=== PATIENT | female | born 1975 | race American Indian/Alaskan Native ===

== ENCOUNTER 2018-11-26 08:56 | Emergency (ER) | payer OTHER ==
[2018-11-26 09:35] LABS: Basophils % (Auto) 0.1 % (0.0-1.8); Hematocrit 25.1 % (30.3-42.9); Hemoglobin 7.7 gm/dl (10.1-14.3); Lymphocytes # (Auto) 1.6 K/mm3 (1.2-5.4); Lymphocytes % (Auto) 31.4 % (13.4-35.0); Mean Corpuscular HGB Conc 31 % (30-34); Monocytes # (Auto) 0.6 K/mm3 (0.0-0.8); Platelet Count 597 K/mm3 (140-440); Red Blood Count 4.18 M/mm3 (3.65-5.03); Red Cell Distribution Width 19.5 % (13.2-15.2)
[2018-11-26 09:36] LABS: Mean Corpuscular Volume 60 fl (79-97)
[2018-11-26 10:14] LABS: % Iron Saturation 3.33 %
[2018-11-26 10:16] LABS: BUN/Creatinine Ratio 12; Blood Urea Nitrogen 12 mg/dL (7-17); Calcium 8.8 mg/dL (8.4-10.2); Hemolysis Index 2
[2018-11-26] MEDS ORDERED: FEOSOL PO ONE (11:00)
[2018-11-26 11:22] LABS: Bilirubin,Urine NEG (Negative); Blood,Urine NEG (Negative); Color,Urine Straw (Yellow); Mucus,Urine FEW /HPF; Protein,Urine <15 mg/dL mg/dL (Negative); Urobilinogen,Urine < 2.0 mg/dL (<2.0); WBC,Urine < 1.0 /HPF (0.0-6.0)
[2018-11-26 11:30] LABS: Amphetamine Screen,Urine PRESUMPTIVE NEGATIVE; Benzodiazepines Screen,Urine PRESUMPTIVE NEGATIVE; Cannabinoid Screen,Urine PRESUMPTIVE NEGATIVE; Cocaine Screen,Urine PRESUMPTIVE NEGATIVE; Methadone Screen,Urine PRESUMPTIVE NEGATIVE; Opiate Screen,Urine PRESUMPTIVE NEGATIVE
--- NOTE | 2018-11-26 11:40 | Emergency Department Report ---
ED Psych HPI - General Chief Complaint: Psych Stated Complaint: PSYCH PROBLEMS Time Seen by Provider: 11/26/18 09:44 Source: patient Mode of arrival: Ambulatory Limitations: No Limitations - History of Present Illness Initial Comments: 43-year-old female with a past medical history of PTSD and bipolar disorder presents to the hospital with complains of depression and labile mood. Patient states she is easily triggered and when she gets angry at her emotions are difficult to control and make her want to hurt people. Patient denies auditory or visual hallucinations or suicidal ideation. His been noncompliant with his Seroquel for 2 months. She also has a history of alcohol abuse but has abstained since 2017. Patient recently restarted her left over acamprosate which she has taken in the past to help with alcohol dependence. Patient states that the depression and stress is making her want to start drinking again and she restarted the medication to try to curb her alcohol cravings. Patient states she has not been under any psychiatric care since leaving [place] in the summer of 2017 due to the lack of insurance in [place]. - Related Data Allergies Allergy/AdvReac Type Severity Reaction Status Date / Time No Known Allergies Allergy Unverified 11/26/18 08:57 ED Review of Systems ROS: Stated complaint: PSYCH PROBLEMS Other details as noted in HPI Comment: All other systems reviewed and negative ED Past Medical Hx - Past Medical History Hx Psychiatric Treatment: Yes (BIPOLAR) - Surgical History Additional Surgical History: BREAST REDUCTION . - Social History Smoking Status: Never Smoker Substance Use Type: None ED Physical Exam - General Limitations: No Limitations - Other Other exam information: General: No limitations, patient is alert in no acute distress Head exam: Atraumatic, normocephalic Eyes exam: Normal appearance, pupils equal reactive to light, extraocular movements intact ENT: Moist mucous membrane Neck exam: Normal inspection, full range of motion, no meningismus nontender Respiratory exam: Clear to auscultation bilateral, no wheezes, rales, crackles Cardiovascular: Normal rate and rhythm, normal heart sounds Abdomen: Soft, nondistended, and nontender, with normal bowel sounds, no rebound, or guarding Extremity: Full range of motion normal inspection no deformity Back: Normal Inspection, full range of motion, no tenderness Neurologic: Alert, oriented x3, cranial nerves intact, no motor or sensory deficit Psychiatric: normal affect, normal mood Skin: Warm, dry, intact ED Course Vital Signs 11/26/18 11/26/18 09:05 11:00 Temperature 98.6 F Pulse Rate 87 Respiratory 18 18 Rate Blood Pressure 111/64 O2 Sat by Pulse 98 98 Oximetry ED Medical Decision Making - Lab Data Result diagrams: 11/26/18 09:17 11/26/18 09:17 Lab Results 11/26/18 11/26/18 11/26/18 Range/Units 09:17 09:17 09:17 WBC (4.5-11.0) K/mm3 RBC (3.65-5.03) M/mm3 Hgb (10.1-14.3) gm/dl Hct (30.3-42.9) % MCV (79-97) fl MCH (28-32) pg MCHC (30-34) % RDW (13.2-15.2) % Plt Count (140-440) K/mm3 Lymph % (Auto) (13.4-35.0) % [place] % (Auto) (0.0-7.3) % Eos % (Auto) (0.0-4.3) % Baso % (Auto) (0.0-1.8) % Lymph # (1.2-5.4) K/mm3 [place] # (0.0-0.8) K/mm3 Eos # (0.0-0.4) K/mm3 Baso # (0.0-0.1) K/mm3 Seg Neutrophils % (40.0-70.0) % Seg Neutrophils # (1.8-7.7) K/mm3 Sodium 140 (137-145) mmol/L Potassium 4.0 (3.6-5.0) mmol/L Chloride 104.9 (98-107) mmol/L Carbon Dioxide 26 (22-30) mmol/L Anion Gap 13 mmol/L BUN 12 (7-17) mg/dL Creatinine 1.0 (0.7-1.2) mg/dL Estimated GFR > 60 ml/min BUN/Creatinine Ratio 12 % Glucose 83 (65-100) mg/dL Calcium 8.8 (8.4-10.2) mg/dL Iron (37-170) ug/dL TIBC (250-450) mcg/dL % Saturation % Transferrin (192-382) mg/dl HCG, Qual (Negative) Urine Color (Yellow) Urine Turbidity (Clear) Urine pH (5.0-7.0) Ur Specific [place] (1.003-1.030) Urine Protein (Negative) mg/dL Urine Glucose (UA) (Negative) mg/dL Urine Ketones (Negative) mg/dL Urine Blood (Negative) Urine Nitrite (Negative) Urine Bilirubin (Negative) Urine Urobilinogen (<2.0) mg/dL Ur Leukocyte Esterase (Negative) Urine WBC (Auto) (0.0-6.0) /HPF Urine RBC (Auto) (0.0-6.0) /HPF Urine Mucus /HPF Salicylates < 0.3 L (2.8-20.0) mg/dL Urine Opiates Screen Urine Methadone Screen Acetaminophen 5.3 L (10.0-30.0) ug/mL Ur Barbiturates Screen Ur Phencyclidine Scrn Ur Amphetamines Screen U Benzodiazepines Scrn Urine Cocaine Screen U Marijuana (THC) Screen Drugs of Abuse Note Plasma/Serum Alcohol (0-0.07) % 11/26/18 11/26/18 11/26/18 Range/Units 09:17 09:17 09:17 WBC 5.1 (4.5-11.0) K/mm3 RBC 4.18 (3.65-5.03) M/mm3 Hgb 7.7 L (10.1-14.3) gm/dl Hct 25.1 L (30.3-42.9) % MCV 60 L (79-97) fl MCH 18 L (28-32) pg MCHC 31 (30-34) % RDW 19.5 H (13.2-15.2) % Plt Count 597 H (140-440) K/mm3 Lymph % (Auto) 31.4 (13.4-35.0) % [place] % (Auto) 12.0 H (0.0-7.3) % Eos % (Auto) 0.0 (0.0-4.3) % Baso % (Auto) 0.1 (0.0-1.8) % Lymph # 1.6 (1.2-5.4) K/mm3 [place] # 0.6 (0.0-0.8) K/mm3 Eos # 0.0 (0.0-0.4) K/mm3 Baso # 0.0 (0.0-0.1) K/mm3 Seg Neutrophils % 56.5 (40.0-70.0) % Seg Neutrophils # 2.9 (1.8-7.7) K/mm3 Sodium (137-145) mmol/L Potassium (3.6-5.0) mmol/L Chloride (98-107) mmol/L Carbon Dioxide (22-30) mmol/L Anion Gap mmol/L BUN (7-17) mg/dL Creatinine (0.7-1.2) mg/dL Estimated GFR ml/min BUN/Creatinine Ratio % Glucose (65-100) mg/dL Calcium (8.4-10.2) mg/dL Iron 14 L (37-170) ug/dL TIBC 421 (250-450) mcg/dL % Saturation 3.33 % Transferrin 362 (192-382) mg/dl HCG, Qual (Negative) Urine Color (Yellow) Urine Turbidity (Clear) Urine pH (5.0-7.0) Ur Specific [place] (1.003-1.030) Urine Protein (Negative) mg/dL Urine Glucose (UA) (Negative) mg/dL Urine Ketones (Negative) mg/dL Urine Blood (Negative) Urine Nitrite (Negative) Urine Bilirubin (Negative) Urine Urobilinogen (<2.0) mg/dL Ur Leukocyte Esterase (Negative) Urine WBC (Auto) (0.0-6.0) /HPF Urine RBC (Auto) (0.0-6.0) /HPF Urine Mucus /HPF Salicylates (2.8-20.0) mg/dL Urine Opiates Screen Urine Methadone Screen Acetaminophen (10.0-30.0) ug/mL Ur Barbiturates Screen Ur Phencyclidine Scrn Ur Amphetamines Screen U Benzodiazepines Scrn Urine Cocaine Screen U Marijuana (THC) Screen Drugs of Abuse Note Plasma/Serum Alcohol < 0.01 (0-0.07) % 11/26/18 11/26/18 11/26/18 Range/Units 09:17 Unknown Unknown WBC (4.5-11.0) K/mm3 RBC (3.65-5.03) M/mm3 Hgb (10.1-14.3) gm/dl Hct (30.3-42.9) % MCV (79-97) fl MCH (28-32) pg MCHC (30-34) % RDW (13.2-15.2) % Plt Count (140-440) K/mm3 Lymph % (Auto) (13.4-35.0) % [place] % (Auto) (0.0-7.3) % Eos % (Auto) (0.0-4.3) % Baso % (Auto) (0.0-1.8) % Lymph # (1.2-5.4) K/mm3 [place] # (0.0-0.8) K/mm3 Eos # (0.0-0.4) K/mm3 Baso # (0.0-0.1) K/mm3 Seg Neutrophils % (40.0-70.0) % Seg Neutrophils # (1.8-7.7) K/mm3 Sodium (137-145) mmol/L Potassium (3.6-5.0) mmol/L Chloride (98-107) mmol/L Carbon Dioxide (22-30) mmol/L Anion Gap mmol/L BUN (7-17) mg/dL Creatinine (0.7-1.2) mg/dL Estimated GFR ml/min BUN/Creatinine Ratio % Glucose (65-100) mg/dL Calcium (8.4-10.2) mg/dL Iron (37-170) ug/dL TIBC (250-450) mcg/dL % Saturation % Transferrin (192-382) mg/dl HCG, Qual Negative (Negative) Urine Color Straw (Yellow) Urine Turbidity Clear (Clear) Urine pH 7.0 (5.0-7.0) Ur Specific [place] 1.009 (1.003-1.030) Urine Protein <15 mg/dl (Negative) mg/dL Urine Glucose (UA) Neg (Negative) mg/dL Urine Ketones Neg (Negative) mg/dL Urine Blood Neg (Negative) Urine Nitrite Neg (Negative) Urine Bilirubin Neg (Negative) Urine Urobilinogen < 2.0 (<2.0) mg/dL Ur Leukocyte Esterase Neg (Negative) Urine WBC (Auto) < 1.0 (0.0-6.0) /HPF Urine RBC (Auto) 1.0 (0.0-6.0) /HPF Urine Mucus Few /HPF Salicylates (2.8-20.0) mg/dL Urine Opiates Screen Presumptive negative Urine Methadone Screen Presumptive negative Acetaminophen (10.0-30.0) ug/mL Ur Barbiturates Screen Presumptive negative Ur Phencyclidine Scrn Presumptive negative Ur Amphetamines Screen Presumptive negative U Benzodiazepines Scrn Presumptive negative Urine Cocaine Screen Presumptive negative U Marijuana (THC) Screen Presumptive negative Drugs of Abuse Note Disclamer Plasma/Serum Alcohol (0-0.07) % - Differential Diagnosis suicidal, homicidal, psychosis, depression Critical Care Time: No Critical care attestation.: If time is entered above; I have spent that time in minutes in the direct care of this critically ill patient, excluding procedure time. ED Disposition Clinical Impression: Bipolar disorder, PTSD (post-traumatic stress disorder), Noncompliance with medication regimen, Iron deficiency anemia, Thoughts of harming others Disposition: DC/TX-65 PSY HOSP/PSY UNIT Is pt being admited?: No Condition: Stable Time of Disposition: 15:44 (awaiting acceptance)
[2018-11-26] MEDS ORDERED: ATIVAN PO ONE (15:58)
[2018-11-27] MEDS: FEOSOL PO SCH (12:14)
--- NOTE | 2018-11-27 17:28 | Consultation ---
History of Present Illness - Reason for Consult Consult date: 11/27/18 Reason for consult: psychiatric evaluation - Chief Complaint Chief complaint: "I'm not really ok." - History of Present Psychiatric Illness 43 year old female presents complaining of "wanting to hurt someone". She is now on 1013. She states, "I was just pissed off." She was running out of medication and was frustrated with the process of starting mental health services. She went to the [facility] for intake but was unable to be seen that day, on 11/26. She states she did not think she could wait and came to ER with the expectation of having her medications prescribed until she could get to outpatient treatment. She denies ever saying she wanted to kill anyone or herself. She states she was angry. She has history of Bipolar disorder with multiple prior hospitalizations. She reports noncompliance with home medications (Including Seroquel, Lamictal), taking only some of her prescriptions or taking them as needed, for the past 6- 9 months since moving here to [place] from [place]. She restarted lamictal 100mg daily but does not find it as helpful as it was previously. She insists she has been taking this dose for more than 2 weeks. She wants to restart seroquel and says it helped her not to be in the position. She reports se asonal depression but is not improving as she normally does this time of year. She also reports having numerous stressors, such as the move, living in the basement of her Uncle's house, and her aunt has cancer. She is caring for the daughter of her recently sister. She admits a recent incident wherein she became agitated "justifiable" over a rental agreement that fell through. There is a history of Alcohol dependence but she reports 2 years of sobriety. She does indicate that she has been having cravings for alcohol given the stress. She denies suicidal or homicidal ideation. She reports lack of motivation, anhedonia, increased appetite, and not sleeping well. She denies SI/HI. She reports an increase in anxiety and phobia of snakes since being in the basement of her uncle's house. She insists that if she is able to have her meds prescribed that she will be able to cope with the stress. She plans to follow up with outpatient mental health. Medications and Allergies Allergies Allergy/AdvReac Type Severity Reaction Status Date / Time No Known Allergies Allergy Unverified 11/26/18 08:57 Home Medications Medication Instructions Recorded Confirmed Last Taken Type Benztropine [Cogentin] 2 mg PO BID 11/26/18 11/26/18 Unknown History Quetiapine Fumarate [SEROquel] 50 mg PO TID 11/26/18 11/26/18 Unknown History lamoTRIgine [LaMICtal] 100 mg PO BID 11/26/18 11/26/18 Unknown History Active Meds: Active Medications Ferrous Sulfate (Feosol) 325 mg PO DAILY MARIO Last Admin: 11/27/18 12:14 Dose: 325 mg Documented by: Past psychiatric history - Past Medical History Past Surgical History: Other (gastric bypass) - past Psychiatric treatment and history Psych: Addictions, Bipolar, Depression psychiatric treatment history: The last time she saw a psychiatrist was 8months ago in [facility]. She reports being on multiple medications over the years. She states she has "idosyncratic reactions to almost all of them." She has a history osf seasonal depression, excessive eating, and phobias of snakes. She says she normally has hypersomnia. She last drank 2 years ago and took naltrexone and then campral to treat cravings. Campral helped at the time. Past medication trials: effexor-sick and drowsy naltrexone-skin crawling lamictal-previously worked seroquel-helped mood trazodone-bad response gabapentin-did nothing numerous other meds - Social History Social history: lives with family (lives with uncle and aunt (has cancer)-stays in basement) Mental Status Exam - Vital signs Last Vital Signs Temp 98.1 F 11/27/18 13:58 Pulse 73 11/27/18 13:58 Resp 20 11/27/18 13:58 BP 139/65 11/27/18 13:58 Pulse Ox 97 11/27/18 13:58 - Exam Orientation: time, place, person Affect: depressed Mood: congruent with affect Thought content: other (denies SI/HI) Thought Process: Intact Perceptions: none Speech: normal rate and pattern Concentration: focused Motor activity: normal Level of consciousness: alert Memory: Intact Sleep Symptoms: Difficulty Falling Asleep Appetite: increased Interaction: cooperative Results Result Diagrams: 11/26/18 09:17 11/26/18 09:17 All other labs normal. Assessment and Plan Assessment and plan: Impression: denies SI/HI. She requests medications to be restarted. She was frustrated with not being seen by the intake department on Thursday11/26/2018 at the [facility]. history of bipolar disorder alcohol use disorder, in remission. She is worried about relapse and has restarted campral but does not find it as helpful as it previously was in 2017. r/o borderline personality disorder Recommendations: Medications: restart home meds of seroquel 200mg, 1/2 tab bid for bipolar disorder and lamict al 100mg daily. She voices awareness of risks, including SJS with lamictal. She states she has been taking lamictal 100mg and has only a few pills left. dispo: follow up in 24 hours to determine the proper disposition. Continue 1013 and provider will determine if she meets criteria tomorrow. will staff with Dr. Lovelace
[2018-11-27] MEDS ORDERED: LaMICtal PO SCH (22:00)
[2018-11-28] MEDS: FEOSOL PO SCH (10:46)
--- NOTE | 2018-11-28 13:16 | Progress Note ---
Subjective - Reason for Consult Consult date: 11/28/18 Reason for consult: Psychiatric Follow-up Evaluation - Chief Complaint Chief complaint: "very anxious" Patient is a 43 year old female presents complaining of "wanting to hurt someone". She is now on 1013. Today the patient is cooperative but anxious during the assessment. She was running out of medication and was frustrated with the process of starting mental health services. She went to the [facility] for intake but was unable to be seen that day, on 11/26/2018. She states, " I'm scared. I'm very anxious." She verbalizes " I came here to get my medication." Patient denies SI/HI's and A/VH's. Endorses depressed mood and anxiety. Mental Status Exam - Vital signs Last Vital Signs Temp 98.1 F 11/28/18 08:16 Pulse 79 11/28/18 08:16 Resp 18 11/28/18 08:16 BP 114/70 11/28/18 08:16 Pulse Ox 100 11/28/18 08:16 - Exam Narrative exam: Orientation: time, place, person Affect: depressed Mood: " scared and anxious" Thought content: other (denies SI/HI) Thought Process: Intact Perceptions: none Speech: normal rate and pattern Concentration: focused Motor activity: normal Level of consciousness: alert Memory: Intact Sleep Symptoms: Difficulty Falling Asleep Appetite: increased Interaction: cooperative Assessment and Plan Impression: PPHx Bipolar Disorder II and PTSD. Today the patient is cooperative but anxious during the assessment. She denies SI/HI's, A/VH's, and delusions. DDx: r/o schizoaffective disorder, bipoar type Recommendations: 1. Continue 1013. 2. Continue seroquel 200mg QHS for bipolar disorder and lamictal 100mg daily. She voices awareness of risks, including SJS with lamictal. 3. Add vistaril 50mg po TID anxiety. Discussed anti-cholinergic side effects of Vistaril. 4. Attempt to gain collateral to determine proper disposition. Disposition: Reevaluate 1013 in 24 hours. If patient's 1013 is rescinded on 11/29/18 she will follow-up at the [facility]. Will staff with Dr. Gregorio Lovelace
[2018-11-28] MEDS ORDERED: VISTARIL ONE (16:56)
[2018-11-28] MEDS ORDERED: VISTARIL PO ONE (16:57)
[2018-11-28] MEDS: VISTARIL PO SCH (22:13)
[2018-11-29] MEDS: VISTARIL PO SCH (09:41)
[2018-11-29] MEDS ORDERED: LaMICtal PO SCH (10:00)
--- NOTE | 2018-11-29 11:01 | Progress Note ---
Subjective - Reason for Consult Consult date: 11/29/18 Reason for consult: Psychiatry [place] - Chief Complaint Chief complaint: "I'm okay now" Patient is a 43 year old female presents complaining of "wanting to hurt someone". She is now on 1013. Today the patient is calm and cooperative during the the assessment. She stated that he reason for coming to the ER was to get a prescription for her medications (running out of medications). She stated that she just moved here from [place], [place]. She stated that she was upset when she gestured something about hurting someone. She denies wanting to hurt anyone when asked. She stated that she had planned to follow up with [facility] because she do not have a psychiatrist at this time. She denies Si/HI's and AVH's. She denies any side effects of her medications. Mental Status Exam - Vital signs Last Vital Signs Temp 98.4 F 11/29/18 08:03 Pulse 72 11/29/18 08:03 Resp 16 11/29/18 08:03 BP 99/66 11/29/18 08:03 Pulse Ox 97 11/29/18 08:03 - Exam Narrative exam: MSE: Appearance: calm, cooperative Behavior: regular eye contact Speech: regular rate and tone Mood: "okay" Affect: congruent to mood Thought Process: logical Thought Content: denies SI/HI's and AVH's Motor Activity: sitting up in bed Cognition: A/O x 3 Insight: appropriate Judgment: appropriate Assessment and Plan Impression: Bipolar DO. PTSD. Today the patient is calm and cooperative during the assessment. The patient is no threat to others. DDx: R/O Schizoaffective DO Recommendation/Plan: Rescind 1013. Continue Seroquel 200 mg PO HS for mood, Lamictal 100 mg PO daily for mood, and Vistaril 50 mg PO TID for anxiety. . Discussed possible SJS with the patient, she verbalized understanding. Dispo: The patient can follow up with [facility] for outpatient psy services. Will staff with Dr. Gregorio Lovelace
[2018-11-30 17:52] VITALS: BP 99/66
== END 2018-11-29 11:41 ==
LOC: ED 08:56 → EEVIPCON 08:56 → ED 11-29 11:41
DX: F31.9 Bipolar disorder, unspecified (principal); F43.10 Post-traumatic stress disorder, unspecified; D50.9 Iron deficiency anemia, unspecified; Z91.14 Patient's other noncompliance with medication regimen
CPT/HCPCS: 36415; 80048; 80307; 81001; 83550; 84703; 85025; 99284; G0480; 80320; Q0177

== ENCOUNTER 2019-08-03 11:27 | Emergency (ER) | payer SELFPAY ==
[2019-08-03 11:33] VITALS: BP 115/64
--- NOTE | 2019-08-03 11:39 | Emergency Department Report ---
ED Back Pain/Injury HPI - General Chief Complaint: Back Pain/Injury Stated Complaint: BACK PAIN Time Seen by Provider: 08/03/19 11:33 Source: patient Limitations: No Limitations - History of Present Illness Initial Comments: This is a 43-year-old female nontoxic, well nourished in appearance, no acute signs of distress presents to the ED with c/o of acute on chronic lower back pain. Patient stated that the past 4 days she was moving and developed this pain. Patient denies any trauma. Denies any bladder or bowel instability. Patient denies any urinary symptoms. Denies any fever, chills, nausea, vomiting, headache, stiff neck, chest pain or shortness of breath. Patient denies any numbness or tingling. Denies any aleve but stated that diclofenac works for her back pains. Denies any allergies to diclofenac. MD Complaint: back pain -: days(s) (4) Similar Symptoms Previously: Yes Place: work Radiation: none Severity: mild Severity scale (0 -10): 8 Quality: aching Consistency: intermittent Improves With: immobilization, sitting upright Worsens With: movement, walking Context: while lifting, turning/twisting Associated Symptoms: denies other symptoms. denies: confusion, weakness, chest pain, numbness, difficulty walking, cough, difficulty urinating, diaphoresis, incontinence, fever/chills, constipation, headaches, abdominal pain, loss of appetite, malaise, nausea/vomiting, rash, seizure, shortness of breath, syncope - Related Data Previous Rx's Medication Instructions Recorded Last Taken Type Benztropine [Cogentin] 1 mg PO BID #60 tablet 11/29/18 Unknown Rx Quetiapine Fumarate [SEROquel] 50 mg PO TID #90 tablet 11/29/18 Unknown Rx lamoTRIgine [LaMICtal] 100 mg PO BID #60 tablet 11/29/18 Unknown Rx Diclofenac Sodium 50 mg PO Q12H PRN #20 tablet. 08/03/19 Unknown Rx methOCARBAMOL [Robaxin TAB] 500 mg PO BID PRN #12 tab 08/03/19 Unknown Rx Allergies Allergy/AdvReac Type Severity Reaction Status Date / Time naproxen [From Aleve] Allergy Unknown Verified 08/03/19 11:38 ED Review of Systems ROS: Stated complaint: BACK PAIN Other details as noted in HPI Constitutional: denies: chills, fever Eyes: denies: eye pain, eye discharge, vision change ENT: denies: ear pain, throat pain Respiratory: denies: cough, shortness of breath, wheezing Cardiovascular: denies: chest pain, palpitations Endocrine: no symptoms reported Gastrointestinal: denies: abdominal pain, nausea, diarrhea Genitourinary: denies: urgency, dysuria, discharge Musculoskeletal: back pain. denies: joint swelling, arthralgia Skin: denies: rash, lesions Neurological: denies: headache, weakness, paresthesias Psychiatric: denies: anxiety, depression Hematological/Lymphatic: denies: easy bleeding, easy bruising ED Past Medical Hx - Past Medical History Hx Psychiatric Treatment: Yes (BIPOLAR) - Surgical History Past Surgical History?: Yes Hx Appendectomy: Yes Additional Surgical History: BREAST REDUCTION. Gastric bypass - Social History Smoking Status: Never Smoker Substance Use Type: None - Medications Home Medications: Home Medications Medication Instructions Recorded Confirmed Last Taken Type Benztropine [Cogentin] 1 mg PO BID #60 tablet 11/29/18 Unknown Rx Quetiapine Fumarate [SEROquel] 50 mg PO TID #90 tablet 11/29/18 Unknown Rx lamoTRIgine [LaMICtal] 100 mg PO BID #60 tablet 11/29/18 Unknown Rx Diclofenac Sodium 50 mg PO Q12H PRN #20 tablet. 08/03/19 Unknown Rx methOCARBAMOL [Robaxin TAB] 500 mg PO BID PRN #12 tab 08/03/19 Unknown Rx ED Physical Exam - General Limitations: No Limitations General appearance: alert, in no apparent distress - Head Head exam: Present: atraumatic, normocephalic - Neck Neck exam: Present: normal inspection, full ROM. Absent: tenderness, meningismus, lymphadenopathy - Extremities Exam Extremities exam: Present: normal inspection, full ROM, normal capillary refill. Absent: tenderness - Back Exam Back exam: Present: normal inspection, full ROM, paraspinal tenderness (left sided lumbar paraspinal). Absent: tenderness, CVA tenderness (R), CVA tenderness (L), muscle spasm, vertebral tenderness, rash noted - Expanded Back Exam Expanded Back exam: Absent: saddle anesthesia Back exam: Negative Straight Leg Raising: Left, Right - Neurological Exam Neurological exam: Present: alert, oriented X3, normal gait - Psychiatric Psychiatric exam: Present: normal affect, normal mood - Skin Skin exam: Present: warm, dry, intact, normal color. Absent: rash ED Course Vital Signs 08/03/19 11:32 Temperature 97.8 F Pulse Rate 89 Respiratory 18 Rate Blood Pressure 115/64 O2 Sat by Pulse 97 Oximetry - Reevaluation(s) Reevaluation #1: 08/03/19 11:37 Patient is speaking in full sentences with no signs of distress noted. ED Medical Decision Making - Medical Decision Making This is a 43-year-old female that presents with low back strain. Patient is stable was examined by me. There is no spinal tenderness. There is no cauda equina syndrome during examination. No bladder or bowel instability. Patient is discharged with muscle relaxant and NSAID. Patient was instructed not to operate any machinery while taking muscle relaxant as they cause her drowsiness. Patient was referred to Follow-up with a primary care doctor in 3-5 days or if symptoms worsen and continue return to emergency room as soon as possible. At time of discharge, the patient does not seem toxic or ill in appearance. No acute signs of distress noted. Patient agrees to discharge treatment plan of care. No further questions noted by the patient. Critical care attestation.: If time is entered above; I have spent that time in minutes in the direct care of this critically ill patient, excluding procedure time. ED Disposition Clinical Impression: Low back strain Disposition: DC-01 TO HOME OR SELFCARE Is pt being admited?: No Does the pt Need Aspirin: No Condition: Stable Instructions: Low Back Strain (ED) Additional Instructions: Follow-up with a primary care doctor in 3-5 days or if symptoms worsen and continue return to the emergency department as soon as possible. Prescriptions: Diclofenac Sodium 50 mg PO Q12H PRN #[address] tablet[address] MORATAYA Reason: Pain, Moderate (4-6) methOCARBAMOL [Robaxin TAB] 500 mg PO BID PRN #12 tab PRN Reason: Muscle Spasm Referrals: RODRIGO STODDARD MD [Referring] - 3-5 Days DAVID OCHOA MD [Staff Physician] - 3-5 Days [facility] [Outside] - 3-5 Days Forms: Work/School Release Form(ED)
== END 2019-08-03 11:43 | disposition home or self-care (01) ==
LOC: ED 11:27
DX: S39.012A Strain of muscle, fascia and tendon of lower back, initial encounter (principal); F31.9 Bipolar disorder, unspecified; Z98.890 Other specified postprocedural states; Z79.899 Other long term (current) drug therapy; Z88.8 Allergy status to other drugs, medicaments and biological substances; Z90.89 Acquired absence of other organs; X58.XXXA Exposure to other specified factors, initial encounter; Y93.89 Activity, other specified; Y92.89 Other specified places as the place of occurrence of the external cause; Y99.8 Other external cause status